=== PATIENT | female | born 1980 | race Two or more races ===

== ENCOUNTER 2024-10-30 08:01 | Observation (INO) | payer MEDICAID, OTHER ==
[~2024-10-30] VITALS: Ht 162.6 cm; Wt 76.6 kg
[2024-10-30 08:10] VITALS: BP 107/64; PULSE 87; RESP 16; TEMP 97.9; O2SAT 97
--- NOTE | 2024-10-30 08:36 | ED.PDOC ---
History of Present Illness HPI Comments 44 year old female presents to the ED with a chief compliant of dizziness onset 3 days. PMHx vertigo, has been experiencing dizziness for the past 3 days as well as nausea, vomiting. She is 20 weeks , P:1, has no PCP, has not been seen by OBGYN. Denies dysuria, hematuria, vaginal discharge, abdominal pain, chest pain, shortness of breath. No other symptoms or modifying factors present at this time. Chief Complaint: Dizziness Time Seen by MD: 08:20 Reviewed Notes: Medications, Allergies Allergies: Coded Allergies: NO KNOWN ALLERGIES (Unverified , 10/30/24) Home Meds Reported Medications Vit W/ Ferrous Fumara (PNV PLUS MULTIVI) Plus Tab, 1 OR, TAB 10/30/24 Information Source: Patient Mode of Arrival: Ambulatory Severity: Moderate Timing: Days Duration: Since onset Prehospital treatment: None Past Medical History Past Medical History (Other): Vertigo Surgical History: Denies all surgeries FLOOR SPACE ALLOCATOR History: No Pertinent FLOOR SPACE ALLOCATOR History Family History Family History: Reviewed,noncontributory to illness, No family hx of Cancer, No family hx of DM, No family hx of Heart aparna, No family hx of HTN, No family hx ofKidney aparna, No family hx of Liver aparna, No family hx of Lung aparna, No family hx of Stroke Social History Smoker: Non-Smoker Alcohol: Denies ETOH Use Drugs: Denies Drug Use Lives In: Home Constitutional: denies: chills, diaphoresis, fatigue, fever, malaise, sweats, weakness, others EENTM: denies: blurred vision, double vision, ear bleeding, ear discharge, ear drainage, ear pain, ear ringing, eye pain, eye redness, hearing loss, mouth pain, mouth swelling, nasal discharge, nose bleeding, nose congestion, nose pain, photophobia, tearing, throat pain, throat swelling, voice changes, others Respiratory: denies: cough, hemoptysis, orthopnea, SOB at rest, shortness of breath, SOB with excertion, stridor, wheezing, others Cardiovascular: denies: chest pain, dizzy spells, diaphoresis, Dyspnea on exertion, edema, irregular heart beat, left arm pain, lightheadedness, palpitations, PND, syncope, others Gastrointestinal: reports: nausea, vomiting; denies: abdomen distended, abdominal pain, blood streaked bowels, constipated, diarrhea, dysphagia, difficulty swallowing, hematemesis, melena, poor appetite, poor fluid intake, rectal bleeding, rectal pain, others Genitourinary: reports: ; denies: abnormal vagina bleeding, burning, dyspareunia, dysuria, flank pain, frequency, hematuria, incontinence, pain, vagina discharge, urgency, others Neurological: reports: dizziness; denies: fainting, headache, left sided numbness, left sided weakness, numbness, paresthesia, pre-existing deficit, right sided numbness, right sided weakness, seizure, speech problems, tingling, tremors, weakness, others Musculoskeletal: denies: back pain, gout, joint pain, joint swelling, muscle pain, muscle stiffness, neck pain, others Integumetry: denies: bruises, change in color, change in hair/nails, dryness, laceration, lesions, lumps, rash, wounds, others Allergic/Immunocompromised: denies: Difficulty Healing, Frequent Infections, Hives, Itching, others Hematologic/Lymphatic: denies: anemia, blood clots, easy bleeding, easy bruising, swollen glands, others Endocrine: denies: excessive hunger, excessive sweating, excessive thirst, excessive urination, flushing, intolerance to cold, intolerance to heat, unexplained weight gain, unexplained weight loss, others Psychiatric: denies: anxiety, bipolar disorder, depression, hopeless, panic disorder, schizophrenia, sleepless, suicidal, others All Other Systems: Reviewed and Negative Physical Exam General Appearance: Moderate Distress, Normal HEENT: Normal ENT Inspection, Pharynx Normal, TMs Normal Neck: Full Range of Motion, Non-Tender, Normal, Normal Inspection Respiratory: Chest Non-Tender, Lungs Clear, No Accessory Muscle Use, No Respira tory Distress, Normal Breath Sounds Cardiovascular: No Edema, No JVD, No Murmur, No Gallop, Normal Peripheral Pulses, Regular Rate/Rhythm Breast Exam: Deferred Gastrointestinal: No Organomegaly, Non Tender, No Pulsatile Mass, Normal Bowel Sounds, Soft Genitalia: Deferred Pelvic: Deferred Rectal: Deferred Extremities: No calf tenderness, Normal capillary refill, Normal inspection, Normal range of motion, Non-tender, No pedal edema Musculoskeletal : Apperance: Normal Neurologic: Alert, lab associate II-XII nml as Tested, No Motor Deficits, Normal Affect, Normal Mood, No Sensory Deficits Cerebellar Function: Normal Reflexes: Normal Skin: Dry, Normal Color, Warm Peripheral Pulses: 3+ Radial (R), 3+ Radial (L) Lymphatic: No Adenopathy Was a procedure done? Was a procedure done?: No Differential Dx Considerations may include: Anemia Electrolyte imbalance X-Ray, Labs, Meds, VS Patient alert. Came in because of dizziness. She is . Able to ambulate without difficulty. No sign of distress. No leg swelling. No shortness a breath. No chest pain. Was sent to labor and delivery. Explained to the patient. Was told to follow up with her primary care physician. Was told to come back if there is any problem. Time of 1ST Reevaluation: 08:50 Reevaluation 1ST: Improved Patient Education/Counseling: Diagnosis, Treatment, Prognosis Family Education/Counseling: No Family Present Departure 1 Departure Time of Disposition: 17:43 Impression: Primary Impression: Normal Qualified Codes: Z34.90 - Encounter for supervision of normal , unspecified, unspecified trimester Disposition: 01 HOME / SELF CARE / HOMELESS Condition: Good Discharged With: Self Critical Care Note Critical Care Time?: No Stability Stability form required: No Heart Score Heart Score: Heart Score Response (Comments) Value History N/A 0 EKG N/A 0 Age N/A 0 Risk Factors N/A 0 Troponin N/A 0 Total 0 I personally scribed for STACI JAQUEZ MD ([email or web address]) on 10/30/24 at 08:36. Electronically submitted by Beatriz Monk ([email or web address]). STACI JAQEUZ MD October 30, 2024 08:36
[2024-10-30] MEDS ORDERED: PREN1TAB71 OR (10:04)
[2024-10-30] MEDS: LACTATED RINGER'S 1,000 ML IV ONE (11:26)
[2024-10-30] MEDS: ONDANSETRON HCL 4 MG/2 ML VIAL IV ONE (11:26)
--- NOTE | 2024-10-31 06:05 | DVHDS2 ---
Discharge Summary Date of Admission October 30, 2024 at 08:33 Date of Discharge: October 30, 2024 Admitting Diagnosis Twenty week experiencing vertigo dizziness Brief Hx & Hospital Course: Patient received fluids as Zofran much improved. Reassuring heart tones Condition at Discharge: Good Final Diagnosis/Problems List GDM totally vertigo dizziness reassuring heart tones Discharge Disposition: Home Discharge Instruct/Medications Diet: Regular Activity: See Comment Discharge Statement: "Patient was advised to return to the ER or call 911 if any headaches, dizziness, shortness of breath, chest pain, abdominal pain, bleeding, fevers, or worsening of medical condition. Patient was counseled about treatment plan, medications, possible side effects, patientverbalized understanding. All questions were answered to the best of my ability. This discharge took greater then 30 minutes in planning, reviewing documentation, counseling the patient, and discussing with other team members." ASSESSMENT ASSESSMENT Assessment Visit Coding OBGYN Date of Service: October 30, 2024 Billing Provider: BOOGIE ELIZABETH DO TOOL PUSHER Common Visit Codes: 34543-DPV/OBS SAME DATE (LOW), 13689-IEC/OBS SAME DATE (MOD), 72112-LHB/OBS SAME DATE (HIGH) TOOL PUSHER Procedure Codes: 81435-81- NON-STRESS TEST BOOGIE ELIZABETH DO October 31, 2024 06:05
== END 2024-10-30 12:15 | disposition home or self-care (01) ==
LOC: ER 08:01 → LDRP 08:33 → ER 08:50 → LDRP 09:00 → UNDOADMOB 09:00
PROVIDERS: ADMIT Obstetrics & Gynecology; ATTEND Obstetrics & Gynecology
DX: O26.893 Other specified pregnancy related conditions, third trimester (principal); R42 Dizziness and giddiness; O24.419 Gestational diabetes mellitus in pregnancy, unspecified control; O21.9 Vomiting of pregnancy, unspecified; O09.522 Supervision of elderly multigravida, second trimester; Z98.890 Other specified postprocedural states; Z79.899 Other long term (current) drug therapy; Z3A.20 20 weeks gestation of pregnancy
CPT/HCPCS: 81002; 94760; 96361; 96374; 99284; G0378; J2405; 59025; 96360

== ENCOUNTER 2025-01-01 00:16 | Observation (INO) | payer MEDICAID ==
[~2025-01-01] VITALS: Ht 154.9 cm; Wt 80.3 kg
[~2025-01-01 00:16] MED LIST: PREN1TAB71 OR
--- NOTE | 2025-01-01 07:08 | DVHDS2 ---
Discharge Summary Date of Admission Jan 01, 2025 at 00:16 Date of Discharge: Jan 01, 2025 Admitting Diagnosis 29 weeks LBP Brief Hx & Hospital Course: NST reactive , reassuring maternal eval Condition at Discharge: Good Final Diagnosis/Problems List 29 week LBP musculoskeletal Discharge Disposition: Home Discharge Instruct/Medications Diet: Regular Activity: Light activity Miscellaneous Medications Vit W/ Ferrous Fumara (Pnv Plus Multivi), 1 OR, (Reported) Discharge Statement: "Patient was advised to return to the ER or call 911 if any headaches, dizziness, shortness of breath, chest pain, abdominal pain, bleeding, fevers, or worsening of medical condition. Patient was counseled about treatment plan, medications, possible side effects, patientverbalized understanding. All questions were answered to the best of my ability. This discharge took greater then 30 minutes in planning, reviewing documentation, counseling the patient, and discussing with other team members." ASSESSMENT ASSESSMENT Assessment Visit Coding OBGYN Date of Service: Jan 01, 2025 Billing Provider: BOOGIE ELIZABETH DO POST GRADUATE INTERNSHIP Common Visit Codes: 65417-LAS/OBS SAME DATE (LOW), 07968-OWA/OBS SAME DATE (MOD), 42516-YZJ/OBS SAME DATE (HIGH) [employer] Procedure Codes: 25161-99- NON-STRESS TEST BOOGIE ELIZABETH DO Jan 01, 2025 07:08
== END 2025-01-01 02:05 | disposition home or self-care (01) ==
LOC: LDRP 00:16
PROVIDERS: ADMIT Obstetrics & Gynecology; ATTEND Obstetrics & Gynecology
DX: O26.893 Other specified pregnancy related conditions, third trimester (principal); R42 Dizziness and giddiness; M25.561 Pain in right knee; M25.562 Pain in left knee; R53.1 Weakness; Z3A.29 29 weeks gestation of pregnancy; Z79.899 Other long term (current) drug therapy
CPT/HCPCS: 59025; 81002; 94760; G0378

== ENCOUNTER 2025-01-29 11:52 | Observation (INO) | payer MEDICAID ==
--- NOTE | 2025-01-29 13:03 | DVH ---
BIOPHYSICAL PROFILE HISTORY: Poly TECHNIQUE: Multiple transabdominal real-time grayscale sonographic images through the gravid uterus of the fetus with duplex Doppler color flow and M-mode spectral analysis FINDINGS: BIOPHYSICAL PROFILE: breathing score: 2/2 movement score: 2/2 tone score: 2/2 Quantitative KAYLA score: 2/2 (KAYLA: 19.7 Cm.) Total score: 8/8 The cervix closed Single live fetus in transverse presentation head to the right. heart rate 130 beats per minute . Anterior placenta without previa or abruption. IMPRESSION: 1. Biophysical profile score: 8/8
[2025-01-29] MEDS ORDERED: LEVO50TA7 PO (13:46)
--- NOTE | 2025-01-29 15:13 | DVHDS2 ---
Physician Discharge Progress N Final Diagnosis: POLYHYDRAMNIA ,TRISOMY 21 33WKS Operations or Procedures: Operations or Procedures NST REACTIVE REVIWEDS.SONO Condition on Discharge: Good Disposition: Home Discharge Instructions: Diet: Regular Activity: No Restrictions, As Tolerated Medications: NA Follow Up Care: Specialist: 4D Discharge Statement: "Patient was advised to return to the ER or call 911 if any headaches, dizziness, shortness of breath, chest pain, abdominal pain, bleeding, fevers, or worsening of medical condition. Patient was counseled about treatment plan, medications, possible side effects, patientverbalized understanding. All questions were answered to the best of my ability. This discharge took greater then 30 minutes in planning, reviewing documentation, counseling the patient, and discussing with other team members." Visit Coding OBGYN Date of Service: Jan 29, 2025 Billing Provider: POOJA LO DO CRYSTAL FLAT GRINDER Common Visit Codes: 50863-SFNCYTY INP/OBS CARE (HIGH) CRYSTAL FLAT GRINDER Procedure Codes: 06506-75- NON-STRESS TEST POOJA LO DO Jan 29, 2025 15:13
== END 2025-01-29 14:04 | disposition home or self-care (01) ==
LOC: LDRP 11:52 → UNDOADMOB 11:52 → LDRP 12:07 → UNDODISOB 14:04
PROVIDERS: ADMIT Obstetrics & Gynecology; ATTEND Obstetrics & Gynecology
DX: O40.3XX0 Polyhydramnios, third trimester, not applicable or unspecified (principal); O26.893 Other specified pregnancy related conditions, third trimester; Q90.9 Down syndrome, unspecified; Z3A.33 33 weeks gestation of pregnancy; Z98.890 Other specified postprocedural states; Z79.899 Other long term (current) drug therapy
CPT/HCPCS: 59025; 76819; 81002; 94760; G0378

== ENCOUNTER 2025-02-05 09:43 | Observation (INO) | payer MEDICAID ==
[~2025-02-05 09:43] MED LIST changes: +LEVO50TA7 PO
--- NOTE | 2025-02-05 11:06 | DVH ---
CLINICAL HISTORY: Trisomy 21/ hypothyroid COMPARISON: US BIOPHYSICAL PROFILE on DOS: 01/29/25 TECHNIQUE: biophysical profile was performed. Transabdominal sonographic images of the fetus we re obtained. FINDINGS: The fetus is in cephalic position. heart rate measures 134 BPM. Amniotic fluid index measures 24.6 cm. The placenta is anterior in position. Hypoechoic structure seen in the uterus in cl ose proximity to the placenta, measures up to 6.0 x 5.5 x 4.6 cm, probable fibroid, also seen on prio r exam. BPP profile is an overall score of 8/8, with 2/2 points for breathing, with at least one episode of breathing over a 30 second duration during a 30 minute observation, 2/2 points for m ovements, with 3 or more discrete body or limb movements, 2/2 points for tone, with one or more episodes of extremity extension with return to flexion, or opening and closing of hand, and 2/ 2 points for amniotic fluid, with at least 1 pocket of amniotic fluid that measures 2 cm in 2 perpend icular planes. IMPRESSION: 1. BPP score of 8/8. 2. Probable fibroid in the uterus in in close proximity to the placenta, measuring up to 6.0 x 5.5 x 4.6 cm, grossly similar to the prior exam. 3. Amniotic fluid index measures 24.6 cm.
--- NOTE | 2025-02-05 16:17 | DVHDS2 ---
Physician Discharge Progress N Final Diagnosis: AMA Fibroid Aneuploidy Operations or Procedures: Operations or Procedures Encounter for NST/BPP/KAYLA Commentary: Commentary PATIENT: NINO MARTINOT: [id number] UNIT: [id number] : 1980 LOC: LD ROOM / BED: TRIAGE2 / A AGE / SEX: 45 / F ADM STATUS: ADM IN SERVICE 0951 ORDERING PHYSICIAN: KERRY LAMBERT DO PROCEDURE(s): BPP - BIOPHYSICAL PROFILE REASON: Trisomy 21/ hypothyroid ORDER NUMBER(s): [id number], ACCESSION NUMBER(s): [id number] CLINICAL HISTORY: Trisomy 21/ hypothyroid COMPARISON: US BIOPHYSICAL PROFILE on DOS: 01/29/25 TECHNIQUE: biophysical profile was performed. Transabdominal sonographic images of the fetus were obtained. FINDINGS: The fetus is in cephalic position. heart rate measures 134 BPM. Amniotic fluid index measures 24.6 cm. The placenta is anterior in position. Hypoechoic structure seen in the uterus in close proximity to the placenta, measures up to 6.0 x 5.5 x 4.6 cm, probable fibroid, also seen on prior exam. BPP profile is an overall score of 8/8, with 2/2 points for breathing, with at least one episode of breathing over a 30 second duration during a 30 minute observation, 2/2 points for movements, with 3 or more discrete body or limb movements, 2/2 points for tone, with one or more episodes of extremity extension with return to flexion, or opening and closing of hand, and 2/2 points for amniotic fluid, with at least 1 pocket of amniotic fluid that measures 2 cm in 2 perpendicular planes. IMPRESSION: 1. BPP score of 8/8. 2. Probable fibroid in the uterus in in close proximity to the placenta, measuring up to 6.0 x 5.5 x 4.6 cm, grossly similar to the prior exam. 3. Amniotic fluid index measures 24.6 cm. ATED BY: LANG FRAGA DO DICTATED DATE/TIME: 02/05/25 1104 Condition on Discharge: Stable Disposition: Home Discharge Instructions: Diet: Regular Activity: No Restrictions, As Tolerated Follow Up/Referral: Follow up Monday 02/12 @ 9[facility] [place] [facility] [place] [facility]BPP Medications: NA Follow Up Care: Discharge Statement: "Patient was advised to return to the ER or call 911 if any headaches, dizziness, shortness of breath, chest pain, abdominal pain, bleeding, fevers, or worsening of medical condition. Patient was counseled about treatment plan, medications, possible side effects, patientverbalized understanding. All questions were answered to the best of my ability. This discharge took greater then 30 minutes in planning, reviewing documentation, counseling the patient, and discussing with other team members." Visit Coding OBGYN Date of Service: Feb 05, 2025 Billing Provider: KERRY LAMBERT DO FIXTURE BUILDER Common Visit Codes: 20941-CRH/OBS SAME DATE (HIGH) FIXTURE BUILDER Procedure Codes: 79565-67- NON-STRESS TEST KERRY LAMBERT DO Feb 05, 2025 16:17
== END 2025-02-05 12:11 | disposition home or self-care (01) ==
LOC: UNDOADMOB 09:43 → LDRP 09:43 → UNDODISOB 12:11
PROVIDERS: ADMIT Obstetrics & Gynecology; ATTEND Obstetrics & Gynecology
DX: O34.13 Maternal care for benign tumor of corpus uteri, third trimester (principal); D25.9 Leiomyoma of uterus, unspecified; Z3A.34 34 weeks gestation of pregnancy; Z98.890 Other specified postprocedural states; Z79.899 Other long term (current) drug therapy
CPT/HCPCS: 59025; 76819; 81002; 94760; G0378

== ENCOUNTER 2025-02-07 20:28 | Observation (INO) | payer MEDICAID ==
[2025-02-07] MEDS ORDERED: LACTATED RINGER'S 1,000 ML IV ONE (20:45)
[2025-02-07 21:12] LABS: Hematocrit 36.1 % (36.0-46.0); Hemoglobin 12.5 g/dL (12.2-16.2); Mean Corpuscular Hemoglobin 26.2 pg (28.0-32.0); Mean Corpuscular Volume 75.5 fL (80.0-100.0); Nucleated Red Blood Cells % 0.0 %
[2025-02-07] MEDS ORDERED: LEVO75TA6 PO (22:52)
--- NOTE | 2025-02-07 23:04 | DVHDS2 ---
Physician Discharge Progress N Final Diagnosis: dizziness, resolved Operations or Procedures: Operations or Procedures S: 45yo IUP@34.4wks presents to OB triage via ambulance with c/o dizziness and fainting episode on the couch once. Blood glucose by EMS was 127. Pt reports last eating at noon today. +FM, denies UCs/VB/LOF/BADILLO/vision changes/RUQ pain. Pt reports feeling anxious when she is home alone. PNC with Dr. Lomeli at [facility], complicated by hypothyroidism/+T21/anemia. Takes PNV, iron, and levothyroxine 50mcg daily. Pt reports immigration mandated her to get 9 vaccines at once when she was 6 weeks and after that she was hospitalized 3 times for fevers. O: VSS, afebrile NST reactive 1L LR IV bolus given Food given by RN BPP 01/26 Laboratory Tests Test 02/07/25 21:01 Range/Units White Blood Count 9.5 4.4-10.8 10^3/uL Red Blood Count 4.78 4.0-5.20 10^6/uL Hemoglobin 12.5 12.2-16.2 g/dL Hematocrit 36.1 36.0-46.0 % Mean Corpuscular Volume 75.5 L 80.0-100.0 fL Mean Corpuscular Hemoglobin 26.2 L 28.0-32.0 pg Mean Corpuscular Hemoglobin Concent 34.7 32.0-36.0 g/dL Red Cell Distribution Width 15.8 H 11.8-14.3 % Platelet Count 199 140-450 10^3/uL Mean Platelet Volume 10.2 6.9-10.8 fL Neutrophils (%) (Auto) 64.4 37.0-80.0 % Lymphocytes (%) (Auto) 24.2 10.0-50.0 % Monocytes (%) (Auto) 9.2 0.0-12.0 % Eosinophils (%) (Auto) 1.4 0.0-7.0 % Basophils (%) (Auto) 0.8 0.0-2.0 % Neutrophils # (Auto) 6.1 1.6-8.6 10 ^3/uL Lymphocytes # (Auto) 2.3 0.4-5.4 10 ^3/uL Monocytes # (Auto) 0.9 0-1.3 10 ^3/uL Eosinophils # (Auto) 0.1 0-0.8 10 ^3/uL Basophils # (Auto) 0.1 0-0.2 10 ^3/uL Nucleated Red Blood Cells 0.0 % Thyroid Stimulating Hormone (TSH) 3.70 0.55-4.78 uIU/mL Free Thyroxine (T4) Calculated 0.98 0.89-1.76 ng/dL A: 45yo IUP@34.4wks Dizziness, resolved P: D/C home Rx sent for levothyroxine 75mcg daily Continue taking PNV and iron Eat food every 3 hours at least and stay hydrated. FKC/PTL precautions reviewed Dr. Lomeli consulted, agrees with POC. Condition on Discharge: Stable Disposition: Home Discharge Instructions: Diet: Regular Activity: Light activity Follow Up/Referral: f/u with [facility] Lomeli at [facility] as scheduled Medications: levothyroxine dose increased to 75mcg daily Follow Up Care: Specialist: f/u in 1wk for NST/BPP Discharge Statement: "Patient was advised to return to the ER or call 911 if any headaches, dizziness, shortness of breath, chest pain, abdominal pain, bleeding, fevers, or worsening of medical condition. Patient was counseled about treatment plan, medications, possible side effects, patientverbalized understanding. All questions were answered to the best of my ability. This discharge took greater then 30 minutes in planning, reviewing documentation, counseling the patient, and discussing with other team members." Visit Coding OBGYN Date of Service: Feb 07, 2025 Billing Provider: THIAGO WHITEHEAD CNM AXMINSTER WEAVER Common Visit Codes: 44791-GJKAQPK OBS CARE (HIGH) AXMINSTER WEAVER Procedure Codes: 61874-78- NON-STRESS TEST THIAGO WHITEHEAD CNM Feb 07, 2025 23:04
--- NOTE | 2025-02-08 00:48 | DVH ---
BIOPHYSICAL PROFILE HISTORY: dizziness, LOC TECHNIQUE: Multiple transabdominal real-time grayscale sonographic images through the gravid uterus of the fetus with duplex Doppler color flow and M-mode spectral analysis FINDINGS: BIOPHYSICAL PROFILE: 8/8 Questionable abnormal coiling pattern is seen with the umbilical cord. heart rate of 127 beats per minute. position and transverse mat right . KAYLA of 23.2 cm. Placenta is anterior position. No placenta previa or abruptio noted. Cervix appear c losed. Cervix measures 4.4 cm. Solid uterine fibroid measuring 5.5 cm within the anterior aspect. IMPRESSION: 1. Biophysical profile score: 8/8 2. Questionable abnormal coiling pattern is seen with the umbilical cord.
== END 2025-02-07 23:25 | disposition home or self-care (01) ==
LOC: LDRP 20:28
PROVIDERS: ADMIT Obstetrics & Gynecology; ATTEND Obstetrics & Gynecology
DX: O99.283 Endocrine, nutritional and metabolic diseases complicating pregnancy, third trimester (principal); E03.9 Hypothyroidism, unspecified; O09.529 Supervision of elderly multigravida, unspecified trimester; Z3A.34 34 weeks gestation of pregnancy; Z98.890 Other specified postprocedural states; Z79.899 Other long term (current) drug therapy
CPT/HCPCS: 36415; 59025; 76819; 81002; 84439; 84443; 85025; 94760; 96360; 96361; G0378

== ENCOUNTER 2025-02-09 06:40 | Observation (INO) | payer MEDICAID ==
[~2025-02-09] VITALS: Ht 157.5 cm; Wt 83.5 kg
[~2025-02-09 06:40] MED LIST changes: -LEVO50TA7 PO; +LEVO75TA6 PO
[2025-02-09] MEDS: LACTATED RINGER'S 1,000 ML IV ONE (07:44)
[2025-02-09] MEDS: ACETAMINOPHEN IV 1000 MG/100ML (10MG/ML) IV ONE (07:48)
[2025-02-09 08:16] LABS: Hematocrit 34.7 % (36.0-46.0); Hemoglobin 11.8 g/dL (12.2-16.2); Mean Corpuscular Hemoglobin 25.8 pg (28.0-32.0); Mean Corpuscular Volume 75.8 fL (80.0-100.0); Nucleated Red Blood Cells % 0.0 %
[2025-02-09 08:35] LABS: Alanine Aminotransferase 13 U/L (7-40); Albumin 4.0 g/dL (3.2-4.8); Alkaline Phosphatase 112 U/L (46-116); Anion Gap 11 (5-15); BUN/Creatinine Ratio 12.0 (10.0-20.0); Bilirubin, Total 0.5 mg/dL (0.2-1.0); Blood Urea Nitrogen 6 mg/dL (9-23); Calcium 9.1 mg/dL (8.7-10.4); Carbon Dioxide 22 mmol/L (20-31); Chloride 103 mmol/L (98-107); Glucose 85 mg/dL (74-106); INR 0.92 (0.9-1.15); Partial Thromboplastin Time 26.8 SEC (24.5-34.5); Potassium 3.6 mmol/L (3.5-5.1); Prothrombin Time 9.8 sec (9.3-11.8); Sodium 136 mmol/L (136-145); Total Protein 6.9 g/dL (5.7-8.2)
[2025-02-09 08:48] LABS: Uric Acid 4.2 mg/dL (3.1-7.8)
[2025-02-09 08:51] LABS: Urine Protein, UAD Negative (Negative)
[2025-02-09] MEDS: LEVOTHYROXINE SODIUM 25 MCG TAB PO ONE (09:26)
[2025-02-09 09:41] LABS: Protein, Urine 6.0 mg/dL (1-14)
--- NOTE | 2025-02-10 08:50 | DVHDS2 ---
Physician Discharge Progress N Final Diagnosis: migrane pressley 35 wks Operations or Procedures: Operations or Procedures nst reactive reviwed,sono Condition on Discharge: Good Disposition: Home Discharge Instructions: Diet: Regular Activity: Light activity Medications: na Follow Up Care: Specialist: 3d Discharge Statement: "Patient was advised to return to the ER or call 911 if any headaches, dizziness, shortness of breath, chest pain, abdominal pain, bleeding, fevers, or worsening of medical condition. Patient was counseled about treatment plan, medications, possible side effects, patientverbalized understanding. All questions were answered to the best of my ability. This discharge took greater then 30 minutes in planning, reviewing documentation, counseling the patient, and discussing with other team members." Visit Coding OBGYN Date of Service: Feb 09, 2025 Billing Provider: POOJA LO DO BUT[employer] BUCKLE MAKER Common Visit Codes: 04869-TPFDFFX OBS CARE (HIGH) [employer] MAKER Procedure Codes: 45068-68- NON-STRESS TEST POOJA LO DO Feb 10, 2025 08:50
== END 2025-02-09 10:24 | disposition home or self-care (01) ==
LOC: LDRP 06:40
PROVIDERS: ADMIT Obstetrics & Gynecology; ATTEND Obstetrics & Gynecology
DX: O99.353 Diseases of the nervous system complicating pregnancy, third trimester (principal); G43.909 Migraine, unspecified, not intractable, without status migrainosus; Z3A.35 35 weeks gestation of pregnancy; Z86.2 Personal history of diseases of the blood and blood-forming organs and certain disorders involving the immune mechanism; Z79.899 Other long term (current) drug therapy
CPT/HCPCS: 36415; 59025; 80053; 81001; 81002; 82570; 82948; 82962; 84156; 84550; 85025; 85610; 85730; 94760; 96361; 96374; G0378; 96360; J0131

== ENCOUNTER 2025-02-16 06:34 | Observation (INO) | payer MEDICAID ==
[~2025-02-16] VITALS: Ht 157.5 cm; Wt 83.5 kg
--- NOTE | 2025-02-23 10:57 | DVH ---
CLINICAL HISTORY: Advanced maternal age, Polyhydramnios COMPARISON: US BIOPHYSICAL PROFILE on DOS: 02/07/25, US BIOPHYSICAL PROFILE on DOS: 02/05/25, US BIOPHY SICAL PROFILE on DOS: 01/29/25 TECHNIQUE: biophysical profile was performed. Transabdominal sonographic images of the fetus we re obtained. FINDINGS: The fetus is in cephalic position. heart rate measures 140 BPM. Amniotic fluid index measures 16.6 cm. The placenta is anterior in position without evidence of previa or abruption visual ized. Again noted is abnormal coiling pattern of the umbilical cord with possible hypercoiled appeara nce. Multiple uterine fibroids are seen, measuring up to 9.1 cm and 6.6 cm, respectively. BPP profile is an overall score of 8/8, with 2/2 points for breathing, with at least one episode of breathing over a 30 second duration during a 30 minute observation, 2/2 points for m ovements, with 3 or more discrete body or limb movements, 2/2 points for tone, with one or more episodes of extremity extension with return to flexion, or opening and closing of hand, and 2/ 2 points for amniotic fluid, with at least 1 pocket of amniotic fluid that measures 2 cm in 2 perpend icular planes. IMPRESSION: 1. BPP score of 8/8. 2. Possible hypercoiling of the umbilical cord. 3. Uterine fibroids.
[2025-02-23] MEDS: ACETAMINOPHEN 500 MG TAB or CAP PO ONE (11:28)
--- NOTE | 2025-02-28 22:52 | DVHDS2 ---
Physician Discharge Progress N Final Diagnosis: hypothy,poly 37wks Operations or Procedures: Operations or Procedures nst reactive reviwed,sono Condition on Discharge: Good Disposition: Home Discharge Instructions: Diet: Regular Activity: No Restrictions, As Tolerated Medications: na Follow Up Care: Specialist: 3d Discharge Statement: "Patient was advised to return to the ER or call 911 if any headaches, dizziness, shortness of breath, chest pain, abdominal pain, bleeding, fevers, or worsening of medical condition. Patient was counseled about treatment plan, medications, possible side effects, patientverbalized understanding. All questions were answered to the best of my ability. This discharge took greater then 30 minutes in planning, reviewing d ocumentation, counseling the patient, and discussing with other team members." Visit Coding OBGYN Date of Service: Feb 23, 2025 Billing Provider: POOJA LO DO PATENT SOLICITOR Common Visit Codes: 08112-XXROYIR INP/OBS CARE (HIGH) PATENT SOLICITOR Procedure Codes: 77592-25- NON-STRESS TEST POOJA LO DO Feb 28, 2025 22:52
== END 2025-02-23 12:14 | disposition home or self-care (01) ==
LOC: LDRP 02-23 10:06 → UNDOADMOB 02-23 10:06 → LDRP 02-23 10:11 → UNDODISOB 02-23 12:14
PROVIDERS: ADMIT Student in an Organized Health Care Education/Training Program; ATTEND Student in an Organized Health Care Education/Training Program
DX: O40.3XX0 Polyhydramnios, third trimester, not applicable or unspecified (principal); O99.283 Endocrine, nutritional and metabolic diseases complicating pregnancy, third trimester; E03.9 Hypothyroidism, unspecified; O09.523 Supervision of elderly multigravida, third trimester; O26.893 Other specified pregnancy related conditions, third trimester; R51.9 Headache, unspecified; Z3A.37 37 weeks gestation of pregnancy; Z79.899 Other long term (current) drug therapy
CPT/HCPCS: 59025; 76819; 81002; 94760; G0378

== ENCOUNTER 2025-02-26 16:18 | Observation (INO) | payer MEDICAID ==
[~2025-02-26] VITALS: Ht 157.5 cm; Wt 83.5 kg
[2025-02-26] MEDS: TERBUTALINE SULFATE 1 MG/ML 1ML VIAL SC ONE (18:37)
--- NOTE | 2025-02-27 06:09 | DVHDS2 ---
Discharge Summary Date of Admission Feb 26, 2025 at 16:18 Date of Discharge: Feb 26, 2025 Admitting Diagnosis Seven week here for NST secondary to abdominal pain NST reassuring and performed Wounds: None Labs/Diagnostic Data: No significant findings Brief Hx & Hospital Course: NST reassuring performed Consults/Reason for consult None Operations or Procedures None Condition at Discharge: Good Final Diagnosis/Problems List 37 weeks reassuring heart tones no labor Discharge Disposition: Home Discharge Instruct/Medications Diet: Regular Activity: Light activity (Kick counts labor precautions) Follow Up/Referral: As scheduled or PRN Scheduled Levothyroxine Sodium (Levothyroxine Sodium), 1 TAB PO DAILY Miscellaneous Medications Vit W/ Ferrous Fumara (Pnv Plus Multivi), 1 OR, (Reported) Discharge Statement: "Patient was advised to return to the ER or call 911 if any headaches, dizziness, shortness of breath, chest pain, abdominal pain, bleeding, fevers, or worsening of medical condition. Patient was counseled about treatment plan, medications, possible side effects, patientverbalized understanding. All questions were answered to the best of my ability. This discharge took greater then 30 minutes in planning, reviewing documentation, counseling the patient, and discussing with other team members." ASSESSMENT ASSESSMENT Assessment Visit Coding OBGYN Date of Service: Feb 26, 2025 Billing Provider: BOOGIE ELIZABETH DO PROGRAM ASSOCIATE Common Visit Codes: 50988-WGA/OBS SAME DATE (LOW), 40494-ESG/OBS SAME DATE (MOD), 20374-MLT/OBS SAME DATE (HIGH) PROGRAM ASSOCIATE Procedure Codes: 51256-94- NON-STRESS TEST BOOGIE ELIZABETH DO Feb 27, 2025 06:08
== END 2025-02-26 19:40 | disposition home or self-care (01) ==
LOC: LDRP 16:18
PROVIDERS: ADMIT Obstetrics & Gynecology; ATTEND Obstetrics & Gynecology
DX: O26.893 Other specified pregnancy related conditions, third trimester (principal); R10.9 Unspecified abdominal pain; Z3A.37 37 weeks gestation of pregnancy
CPT/HCPCS: 59025; 81002; 94762; 96372; G0378; J3105

== ENCOUNTER 2025-02-28 01:57 | Observation (INO) | payer MEDICAID ==
[~2025-02-28] VITALS: Ht 157.5 cm; Wt 84.4 kg
[2025-02-28] MEDS ORDERED: LACTATED RINGER'S 1,000 ML IV SCH (03:45)
[2025-02-28] MEDS ORDERED: LACTATED RINGER'S 1,000 ML IV ONE (03:45)
--- NOTE | 2025-02-28 23:13 | DVHDS2 ---
Physician Discharge Progress N Final Diagnosis: Stable 37.5 weeks IUP labor check Operations or Procedures: Operations or Procedures nst reactive reviwed,sono Condition on Discharge: Good Disposition: Home Discharge Instructions: Diet: Regular Activity: No Restrictions, As Tolerated Follow Up/Referral: f/u with Daryn Briggs as pereviously discussed for High Risk Concerns Medications: Continue all medications as ordered Follow Up Care: Specialist: 2d Discharge Statement: "Patient was advised to return to the ER or call 911 if any headaches, dizziness, shortness of breath, chest pain, abdominal pain, bleeding, fevers, or worsening of medical condition. Patient was counseled about treatment plan, medications, possible side effects, patientverbalized understanding. All questions were answered to the best of my ability. This discharge took greater then 30 minutes in planning, reviewing documentation, counseling the patient, and discussing with other team members." Visit Coding OBGYN Date of Service: Feb 28, 2025 Billing Provider: POOJA OL DO PARAPROFESSIONAL INTERPRETER Common Visit Codes: 88203-[id number] INP/OBS CARE (HIGH) PARAPROFESSIONAL INTERPRETER Procedure Codes: 87705-50- NON-STRESS TEST POOJA LO DO Feb 28, 2025 23:13
== END 2025-02-28 05:48 | disposition home or self-care (01) ==
LOC: LDRP 01:57
PROVIDERS: ADMIT Obstetrics & Gynecology; ATTEND Obstetrics & Gynecology
DX: O62.9 Abnormality of forces of labor, unspecified (principal); O26.893 Other specified pregnancy related conditions, third trimester; R42 Dizziness and giddiness; R10.30 Lower abdominal pain, unspecified; Z3A.37 37 weeks gestation of pregnancy; Z79.899 Other long term (current) drug therapy
CPT/HCPCS: 59025; 81002; 94762; 96360; 96361; G0378